=== PATIENT | female | born 1965 | race Caucasian/White ===

== ENCOUNTER 2016-12-26 17:24 | Inpatient (IN) | payer OTHER ==
[~2016-12-26] VITALS: Ht 177.8 cm; Wt 102.6 kg
[2016-12-26 19:06] LABS: CALCIUM 9.4 mg/dL (8.5-10.1); CARBON DIOXIDE 29.3 mmol/L (21-32); CHLORIDE SERUM 104 mmol/L (98-107); GFR1 > 60 mL/min; GLUCOSE SERUM 92 mg/dL (74-106); POTASSIUM SERUM 3.8 mmol/L (3.5-5.1); SODIUM SERUM 142 mmol/L (136-145)
[2016-12-26 19:12] LABS: ALKALINE PHOSPHATASE 86 U/L (46-116); ALT/SGPT 24 U/L (14-59); AST/SGOT 22 U/L (15-37); BILIRUBIN TOTAL 0.3 mg/dL (0.20-1.00)
[2016-12-26 20:56] LABS: BASOPHIL % 0.4 % (0-2); PLATELET COUNT 261 x10^3mcL (130-400); RED CELL DISTRIBUTION WIDTH 14.1 % (11.5-14.5)
[2016-12-26 22:25] VITALS: BP 138/82
[2016-12-27 06:35] VITALS: BP 131/79
[2016-12-27 06:39] LABS: CALCIUM 9.1 mg/dL (8.5-10.1); CARBON DIOXIDE 28.5 mmol/L (21-32); CHLORIDE SERUM 108 mmol/L (98-107); GFR1 > 60 mL/min; GLUCOSE SERUM 94 mg/dL (74-106); MAGNESIUM 2.1 mg/dL (1.8-2.4); POTASSIUM SERUM 3.9 mmol/L (3.5-5.1); SODIUM SERUM 144 mmol/L (136-145)
[2016-12-27 06:47] LABS: BASOPHIL % 0.6 % (0-2); PLATELET COUNT 248 x10^3mcL (130-400)
[2016-12-27 08:11] LABS: CHOLESTEROL/HDL RATIO 3.5
[2016-12-27 09:22] VITALS: BP 128/67; BP 150/91
[2016-12-27 09:50] VITALS: BP 128/67
== END 2016-12-27 10:30 | disposition home or self-care (01) | DRG 880 ==
LOC: ED 17:24 → DU 20:39
PROVIDERS: Emergency Medicine Emergency Medical Services; Internal Medicine Pulmonary Disease; ADMIT Internal Medicine Pulmonary Disease
DX: F41.0 Panic disorder [episodic paroxysmal anxiety] (principal)
CPT/HCPCS: 83880; 85378; J1644; Q0092